=== PATIENT | male | born 1950 | race African-American/Black ===

== ENCOUNTER 2017-12-16 16:15 | Emergency (ER) | payer MEDICARE, OTHER ==
[~2017-12-16] VITALS: Ht 190.5 cm; Wt 110.5 kg
[~2017-12-16 16:15] MED LIST: BACTRIM DS 8001 TAB PO; BP MED; COREG 6.256.25 MG/TA PO; COUMADIN 5MG5 MG/TAB PO; COUMADIN4 MG PO; HCTZ 25MG TAB25 MG PO; LOPRESSOR 225 MG/TAB PO; LOVENOX120 MG/0.8 SC; MOTRIN 800800 MG/TAB PO; NEURONTIN300 MG/CAP PO; NORCO 325 MG-7.1 TAB PO; OMNICEF 300MG300 MG PO; PERCOCET 325 MG1 TA2 PO; PERCOCET 5/321 UDTAB PO; PRINIVIL10 MG PO; ROXICODONE 55 MG/TAB PO; ZESTRIL 10MG10 MG PO
[2017-12-16 16:32] VITALS: TEMP 100.8
[2017-12-16] MEDS ORDERED: ZESTRIL 10MG10 MG PO (18:16)
[2017-12-16 18:20] LABS: BASO # 0.1 (0.0-0.2); BASO % 0.4 % (0.0-2.0); EOS # 0.1 (0.0-0.7); EOS % 0.9 % (0-4.0); GRAN # 7.5 (1.4-6.5); GRAN % 66.1 % (42.2-75.2); HEMATOCRIT 42.2 % (42.0-52.0); HEMOGLOBIN 14.1 g/dl (13.5-18.0); LYMPH # 2.2 (1.2-3.4); LYMPH % 19.4 % (20.0-51.0); MEAN CELL VOLUME 97 fl (80.0-100.0); MEAN CORPUSCULAR HEMOGLOBIN 33 pg (27.0-31.0); MEAN CORPUSCULAR HGB CONC 33 g/dl (33.0-37.0); MEAN PLATELET VOLUME 9.5 fl (7.4-10.4); MONO # 1.4 (0.1-0.6); MONO % 12.4 % (1.7-9.3); PLATELET COUNT 187 K/mm3 (130-400); RED BLOOD COUNT 4.34 M/mm3 (4.20-5.60)
[2017-12-16 18:22] LABS: INR 2.3 (0.8-3.0); PROTHROMBIN TIME 26.8 SECONDS (9.7-12.8)
[2017-12-16 18:32] LABS: ALBUMIN 4.3 gm/dL (3.5-5.0); BILIRUBIN,TOTAL 1.5 mg/dL (0.0-1.0); C-REACTIVE PROTEIN 8.5 mg/dL (0.0-0.9); CALCIUM 9.6 mg/dL (8.4-10.2); CREATININE, serum 1.28 mg/dL (0.66-1.25); POTASSIUM 3.9 mmol/L (3.4-5.0); TOTAL PROTEIN 8.8 gm/dL (6.4-8.2)
[2017-12-16 19:27] VITALS: BP 137/91; PULSE 86
[2017-12-16] MEDS ORDERED: FLAGYL500 MG PO (19:39)
[2017-12-16] MEDS ORDERED: CIPRO 500MG TA500 MG PO (19:39)
[2017-12-16] MEDS ORDERED: NORCO 325 MG-51 TAB PO (19:43)
== END 2017-12-16 19:56 | disposition home or self-care (01) ==
LOC: COL.ER 16:15
PROVIDERS: Physician Assistant
DX: K57.92 Diverticulitis of intestine, part unspecified, without perforation or abscess without bleeding (principal); I10 Essential (primary) hypertension; M86.9 Osteomyelitis, unspecified; F17.210 Nicotine dependence, cigarettes, uncomplicated; Z86.718 Personal history of other venous thrombosis and embolism; Z87.448 Personal history of other diseases of urinary system; Z89.512 Acquired absence of left leg below knee; Z98.890 Other specified postprocedural states; Z79.01 Long term (current) use of anticoagulants
CPT/HCPCS: J2270; J2405

== ENCOUNTER 2019-02-17 03:23 | Emergency (ER) | payer MEDICARE, OTHER ==
[~2019-02-17] VITALS: Ht 190.5 cm; Wt 112.3 kg
[~2019-02-17 03:23] MED LIST changes: +CIPRO 500MG TA500 MG PO; +FLAGYL500 MG PO; +NORCO 325 MG-51 TAB PO
[2019-02-17 03:33] VITALS: TEMP 97.9
[2019-02-17 04:04] LABS: BASO % 0.4 % (0.0-2.0); EOS # 0.1 (0.0-0.7); EOS % 0.9 % (0-4.0); GRAN % 69.6 % (42.2-75.2); HEMATOCRIT 40.1 % (42.0-52.0); HEMOGLOBIN 13.7 g/dl (13.5-18.0); LYMPH # 1.9 (1.2-3.4); LYMPH % 18.5 % (20.0-51.0); MEAN CELL VOLUME 96 fl (80.0-100.0); MEAN CORPUSCULAR HEMOGLOBIN 33 pg (27.0-31.0); MEAN CORPUSCULAR HGB CONC 34 g/dl (33.0-37.0); MEAN PLATELET VOLUME 9.2 fl (7.4-10.4); MONO % 10.1 % (1.7-9.3); PLATELET COUNT 226 K/mm3 (130-400); RED BLOOD COUNT 4.19 M/mm3 (4.20-5.60); REDCELL DISTRIBUTION WIDTH-CV 13.2 % (11.5-14.5)
[2019-02-17 04:08] LABS: INR 3.3 (0.8-3.0); PROTHROMBIN TIME 37.9 SECONDS (9.7-12.8)
[2019-02-17] MEDS ORDERED: PRINIVIL20 MG PO (04:12)
[2019-02-17] MEDS ORDERED: HCTZ12.5TAB PO (04:12)
[2019-02-17] MEDS ORDERED: COUMADIN 6MG6 MG/TAB PO (04:13)
[2019-02-17] MEDS ORDERED: ASPIRIN 81M81 MG/TA2 PO (04:15)
[2019-02-17] MEDS ORDERED: LIPITOR 40MG TA40 MG PO (04:15)
[2019-02-17 04:18] LABS: ALBUMIN 4.2 gm/dL (3.5-5.0); BILIRUBIN,TOTAL 0.8 mg/dL (0.0-1.0); C-REACTIVE PROTEIN 2.6 mg/dL (0.0-0.9); CALCIUM 9.6 mg/dL (8.4-10.2); CREATININE, serum 1.5 (0.66-1.25); POTASSIUM 4.1 mmol/L (3.4-5.0); TOTAL PROTEIN 8.3 gm/dL (6.4-8.2)
[2019-02-17] MEDS ORDERED: NORCO 325 MG-51 TAB PO (05:54)
[2019-02-17] MEDS ORDERED: AMOXICILLIN 8751 TAB PO (05:54)
[2019-02-17] MEDS ORDERED: ZOFRAN 4MG T4 MG/TAB PO (05:54)
[2019-02-17 06:04] LABS: COLLECTION METHOD CLEAN CATCH
[2019-02-17 06:11] VITALS: BP 136/93; PULSE 73
[2019-02-17 06:15] LABS: PH 5 (5-8); SQUAMOUS EPITHELIAL None Seen /hpf; URINE APPEARANCE Clear; URINE BACTERIA None Seen /hpf; URINE BILIRUBIN Negative (NEGATIVE); URINE BLOOD Negative (NEGATIVE); URINE COLOR Yellow; URINE GLUCOSE Negative (NEGATIVE); URINE KETONE Trace (NEGATIVE); URINE LEUKOCYTE ESTERASE Negative (NEGATIVE); URINE NITRATE Negative (NEGATIVE); URINE PROTEIN(semi-quant) Negative (NEGATIVE); URINE RBC 0-2 /hpf; URINE UROBILINOGEN Negative (NEGATIVE)
== END 2019-02-17 06:12 | disposition home or self-care (01) ==
LOC: COL.ER 03:23
PROVIDERS: Emergency Medicine
DX: K57.32 Diverticulitis of large intestine without perforation or abscess without bleeding (principal); I10 Essential (primary) hypertension; F17.210 Nicotine dependence, cigarettes, uncomplicated; Z86.718 Personal history of other venous thrombosis and embolism
CPT/HCPCS: J2270; J2405; J7030